=== PATIENT | male | born 1955 | race Caucasian/White ===

== ENCOUNTER 2016-12-27 17:53 | Emergency (ER) | payer BC ==
[~2016-12-27] VITALS: Ht 185.4 cm; Wt 119.1 kg
--- NOTE | 2016-12-27 18:43 | NUR ---
Patient unable to void. Bladder scan reveals 40-65 ml urine. Patient reports pain in low back and pelvis is now gone.
--- NOTE | 2016-12-27 18:52 | NUR ---
Report given to Abi RAINES who is assuming care.
[2016-12-27 19:12] LABS: BASOPHILS % (AUTO) 0 % (0-2); EOSINOPHILS # (AUTO) 0.2 10^3uL; EOSINOPHILS % (AUTO) 2 % (0-4); LYMPHOCYTES # (AUTO) 1.2 X10^3; MEAN CORPUSCULAR HEMOGLOBIN 29.9 PG (26.0-34.0); MEAN CORPUSCULAR VOLUME 83 FL (80-100); MEAN PLATELET VOLUME 10.8 FL (6.0-9.5); MONOCYTES # (AUTO) 0.8 X10^3; MONOCYTES % (AUTO) 7 % (3-11); NEUTROPHILS % (AUTO) 81 % (51-67); PLATELET COUNT 236 10^3uL (150-450); WHITE BLOOD COUNT 12.41 10^3uL (4.0-11.0)
[2016-12-27 19:13] LABS: BILIRUBIN,URINE Negative (Negative); CLARITY,URINE Clear; COLOR,URINE Yellow; GLUCOSE, URINE (UA) Negative (Negative); LEUKOCYTE ESTERASE ,URINE Negative (Negative); UROBILINOGEN,URINE 0.2 mg/dL (0.2-1.0)
[2016-12-27 19:22] LABS: ALBUMIN 4.8 g/dL (3.4-5.0); ANION GAP 15.9 MEQ/L (3-15); CALCULATED IONIZED CALCIUM 3.9 mg/dL (3.8-4.6); TOTAL PROTEIN 7.8 g/dL (6.4-8.5)
[2016-12-27 19:22] LABS: URINE CENTRIFUGED VOLUME 11 mL
[2016-12-27] MEDS ORDERED: KETOROLAC 30 MG/ML (TORADOL) 1 ML VIAL IV ONE (20:40)
[2016-12-27] MEDS ORDERED: LORazepam 2 MG/ML (ATIVAN) 1 ML VIAL IV ONE (20:40)
[2016-12-27 21:54] VITALS: BP 117/60
== END 2016-12-27 21:56 | disposition home or self-care (01) ==
LOC: ED 17:58
DX: N13.2 Hydronephrosis with renal and ureteral calculous obstruction (principal)
CPT/HCPCS: 36415; 74176; 80053; 81003; 81015; 85025; 86140; 96361; 96374; 96375; 99284; J1885; J2060; J7030; 99283

== ENCOUNTER → 2017-03-30 | Emergency (ER) | payer BC ==
[~2017-03-30] VITALS: Ht 185.4 cm; Wt 113.7 kg
[~2017-03-30] MED LIST: ED- HYDROcodone/ACETAMINOPHEN 5MG/325MG (NORCO) 6 TABLETS/BTL PO ONE; ED- PROMETHAZINE 25 MG (PHENERGAN) 10 TABLETS/BTL PO ONE; ESOM20CA PO; HYDR-3702 PO; MIRT15TA3 PO; PRM25T PO; [UNRECOGNIZED DRUG - CODE] PO
--- OUTSIDE RECORDS SUMMARY | 2017-03-30 19:47 | XMS REPORT | Summary of Care ---
Author Author Shannan Sagastume M.D. Unknown Address Unknown Phone Unavailable Care Team Providers [facility] [employer] [facility] Name Role Phone Shannan Sagastume M.D. Unavailable Unavailable Hermelinda Holm M.D. Unavailable Unavailable Eugene Holm Unavailable Unavailable Unavailable Functional Status Name Dates Details Functional status health issues are not documented Status: Name Dates Details Cognitive status health issues are not documented Status: Problems Name Dates Details Left inguinal hernia (550.90, K40.90) Status: Active Seborrheic keratosis (702.19, L82.1) Status: Active Hypogonadism, male (257.2, E29.1) Status: Active Greater trochanteric bursitis, right (726.5, M70.61) Status: Active Anxiety (300.00, F41.9) Status: Active Screening for colon cancer (V76.51, Z12.11) Status: Active Diverticulosis of colon (562.10, K57.30) Status: Active Acute bronchitis, unspecified organism (466.0, J20.9) Status: Active Essential hypertension (401.9, I10) Status: Active Hypercholesterolemia (272.0, E78.00) Status: Active Impaired fasting glucose (790.21, R73.01) Status: Active Depression (311, F32.9) Status: Active Non-ulcer dyspepsia (536.8, K30) Status: Active BPH with obstruction/lower urinary tract symptoms (600.01, N40.1) Status: Active Left ureteral stone (592.1, N20.1) Status: Active Hydronephrosis (591, N13.30) Status: Active Medications Name Dates Details Viagra 100 MG Oral Tablet TAKE 0.5 TAB 1 HR BEFORE NEEDED Quantity: 30 Refills: 3 Eugene Hlom M.D. Start 18-Feb-2010 Active Mirtazapine 30 MG Oral Tablet TAKE 1 TABLET DAILY AT BEDTIME Quantity: 90 Refills: 3 Eugene Holm M.D. Start 21-Oct-2011 Active Pravastatin Sodium 40 MG Oral Tablet Take 1 tablet daily Quantity: 90 Refills: 3 Mihai Sood Eugene Shen Start 23-Jun-2014 Active Omeprazole 20 MG Oral Capsule Delayed Release take 1 capsule daily Quantity: 90 Refills: 3 Mihai Sood Eugene Hermelinda Start 04-Jul-2014 Active Amlodipine Besy-Benazepril HCl - 5-20 MG Oral Capsule Take one po daily Quantity: 14 Refills: 0 Mihai Sood Eugene Shen Start 23-Jul-2014 Active Allergies and Adverse Reactions Name Dates Details Penicillins (Allergy) Status: Active Past Medical History Name Dates Details History of Acute meniscal tear of knee (836.2, S83.209A) Status: Resolved History of Anxiety disorder due to medical condition (293.84, F41.8) Status: Resolved History of Dysuria (788.1, R30.0) Status: Resolved History of fatigue (V13.89, Z87.898) Status: Resolved History of Pre-operative exam (V72.84, Z01.818) Status: Resolved History of prostatitis (V13.89, Z87.438) Status: Resolved History of Sebaceous hyperplasia (706.8, L73.8) Status: Resolved History of Side pain (789.00, R10.9) Status: Resolved History of Skin tag (701.9, L91.8) Status: Resolved History of upper respiratory infection (V12.09, Z87.09) Status: Resolved Procedures Procedure Dates Details History of Knee Arthroscopy With Medial Meniscectomy Completed: 23-Mar-2012 Procedures not documented Immunization Name Dates Details Tdap (Adacel) on: 06-Aug-2008 Influenza on: 12-Aug-2009 Influenza A (H1N1) Monoval Vac SUSP on: 14-Aug-2010 Influenza A (H1N1) Monoval Vac SUSP on: 18-Sep-2011 Fluzone Quadrivalent 0.5 ML Intramuscular Suspension Lot #: [id number] on: 28-Aug-2013 Fluzone Quadrivalent 0.5 ML Intramuscular Suspension Lot #: [id number] on: 04-Sep-2014 Fluzone Quadrivalent 0.5 ML Intramuscular Suspension Lot #: [id number] on: 05-Oct-2016 Family History Name Dates Details Family history of Stroke Syndrome (V17.1) Comments: Family History Status: Active Family history of Heart Disease (V17.49) Comments: Family History Status: Active Name Dates Details Family history of Cancer Status: Active Name Dates Details Family history of Aortic Aneurysm Status: Active Name Dates Details Family history of Brain Tumor Status: Active Family history of Uterine Cancer (V16.49) Status: Active Name Dates Details Family history of Uterine Cancer (V16.49) Status: Active Name Dates Details Family history of Hypertension (V17.49) Status: Active Family history of Nonpsychotic Mental Disorder Following Organic Brain Damage Status: Active Name Dates Details Family history of Aortic Aneurysm Status: Active Social History Name Dates Details - Status: Name Dates Details Former smoker Vital Signs Date Test Result Details 30-Dec-2016 11:43 BP Systolic 161 mm[Hg] Status: Comments: Location: ; Position: BP Diastolic 100 mm[Hg] Status: Comments: Location: ; Position: Heart Rate 65 /min Status: Comments: Location: ; 28-Dec-2016 16:22 BP Systolic 128 mm[Hg] Status: Comments: Location: ; Position: BP Diastolic 76 mm[Hg] Status: Comments: Location: ; Position: Heart Rate 75 /min Status: Comments: Location: ; Weight 265 lb Status: Physical Findings 96 Status: Comments: O2 Saturation Body Mass Index Calculated 34.49 kg/m2 Status: Body Surface Area Calculated 2.44 m2 Status: Results Date Description Value Details Results not documented Plan of Care Name Dates Details Planned Observations Planned Goals not documented Planned Encounters Appointment; Provider: Eugene Holm M.D. On 01-Mar-2017 10:45 Instructions Name Dates Details Instructions not documented Encounters Appointment; Eugene Holm M.D. Encounter Diagnosis: Problem not documented On 05-Oct-2016 08:45 Appointment; Eugene Holm M.D. Encounter Diagnosis: Problem not documented On 08:45 Appointment; Eugene Holm M.D. Encounter Diagnosis: Problem not documented On 14:00 Appointment; Anuj Jang M.D.|JAYASHREE Lewis|JAYASHREE Sood, Encounter Diagnosis: Problem not documented On 12-Feb-2016 08:00 Appointment; aRdha Blackburn Encounter Diagnosis: Problem not documented On 12-Feb-2016 07:30 Appointment; Eugene Holm M.D. Encounter Diagnosis: Problem not documented On 07-Feb-2016 10:15 Appointment; Eugene Holm M.D. Encounter Diagnosis: Problem not documented On 25-Mar-2015 08:45 Appointment; Eugene Holm M.D. Encounter Diagnosis: Problem not documented On 25-Feb-2015 09:30"
--- NOTE | 2017-03-30 19:50 | NUR ---
Pt admitted to ER room 8 with c/o left knee hyperextension. Pt has been having pain in left knee for 3 weeks and wearing compression brace. Reports heat and ice have been helping. Denies any known incident that caused pain three weeks ago. Today, while hanging a picture, pt hyperextended knee and heard a "pop". Reports excrutiating pain when trying to bear weight. Rates pain 2-3/10 at rest. Describes pain as burning ache at rest. Pt taken to room via wheelchair and remained in wheelchair rather than transferring to cart. Pt's son is with pt in room.
--- NOTE | 2017-03-30 21:49 | NUR ---
Pt dismissed to home with instructions, prepacks of Lejunior 5 and Phenergan and scripts. Informed pt prescription has also been sent to [place]. Pt stated his understanding. Pt left via wheelchair to [facility]. No other concerns or questions.
--- NOTE | 2017-03-30 22:16 | Diagnostic Imaging Report ---
Clinical indication: Patient with pain and pop after fall. Patient has pain in the medial knee and around the patella. Exam: X-ray of the left knee, 3 views. Comparison: None. Findings: There is no evidence of acute fracture or dislocation. There are small degenerative spurs involving the patellofemoral compartment. There is no significant knee effusion. Impression: 1: There is no acute fracture or dislocation. There is no knee effusion. 2: Mild degenerative disease of the knee. Dictated by: Dictated on workstation # [id number]
[2017-03-30 22:29] VITALS: BP 119/76
== END | disposition home or self-care (01) ==
LOC: ED 19:45
DX: S83.92XA Sprain of unspecified site of left knee, initial encounter (principal); X50.9XXA Other and unspecified overexertion or strenuous movements or postures, initial encounter; Y92.219 Unspecified school as the place of occurrence of the external cause
CPT/HCPCS: 73562; 99282; 99283